=== PATIENT | female | born 1970 | race Asian ===

== ENCOUNTER 2021-06-13 15:20 | Emergency (ER) | payer OTHER ==
[~2021-06-13] VITALS: Ht 160 cm; Wt 68.0 kg
--- NOTE | 2021-06-13 15:37 | NUR ---
[email or web address], medical screening exam in progress
--- NOTE | 2021-06-13 15:40 | NUR ---
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
[2021-06-13] MEDS ORDERED: ASPI81TA31 PO (15:41)
[2021-06-13] MEDS ORDERED: ATOR10TA PO (15:41)
[2021-06-13] MEDS ORDERED: OMEP40CA21 PO (15:41)
[2021-06-13] MEDS ORDERED: ACETAMINOPHEN 325 MG TABLET PO ONE (15:45)
[2021-06-13] MEDS ORDERED: ACETAMINOPHEN 325 MG TABLET ONE (15:47)
[2021-06-13] MEDS ORDERED: LIDOCAINE 5% PATCH TD ONE ×2 (15:58→16:00)
[2021-06-13] MEDS ORDERED: BACLOFEN 10 MG TABLET ONE (15:58)
[2021-06-13] MEDS ORDERED: BACLOFEN 10 MG TABLET PO ONE (16:00)
--- NOTE | 2021-06-13 16:54 | NUR ---
C-spine was cleared by MD. Hard neck collar was removed per MD's order. Patient ambulated to bathroom with steady gait.
[2021-06-13] MEDS ORDERED: ACET-2154 PO (17:27)
[2021-06-13] MEDS ORDERED: LIDO30AD10 TP (17:27)
[2021-06-13] MEDS ORDERED: IBUP-1955 PO (17:27)
[2021-06-13] MEDS ORDERED: BACL10TA PO (17:27)
--- NOTE | 2021-06-13 17:48 | NUR ---
Patient discharged to home in stable condition and steady gait. Written and verbal after care instructions given to patient and spouse. Patient and family verbalized understanding and compliance of instructions. Stressed follow up with primary doctor or return to ER for worsening s/s.
[2021-06-13 17:49] VITALS: BP 116/81
== END 2021-06-13 18:07 | disposition home or self-care (01) ==
LOC: ER 15:29
DX: S13.4XXA Sprain of ligaments of cervical spine, initial encounter (principal); S33.5XXA Sprain of ligaments of lumbar spine, initial encounter; V43.52XA Car driver injured in collision with other type car in traffic accident, initial encounter; Y92.414 Local residential or business street as the place of occurrence of the external cause; R07.89 Other chest pain; E78.00 Pure hypercholesterolemia, unspecified; Z86.73 Personal history of transient ischemic attack (TIA), and cerebral infarction without residual deficits; K21.9 Gastro-esophageal reflux disease without esophagitis; Z79.82 Long term (current) use of aspirin; Z79.899 Other long term (current) drug therapy; R03.0 Elevated blood-pressure reading, without diagnosis of hypertension; I31.3 Pericardial effusion (noninflammatory); S06.9X1A Unspecified intracranial injury with loss of consciousness of 30 minutes or less, initial encounter
CPT/HCPCS: 36415; 70450; 71250; 72125; 72131; 84484; 93005; A4663